=== PATIENT | female | born 1975 ===

== ENCOUNTER 2017-07-04 10:41 | Observation (INO) | payer OTHER ==
[2017-07-04 10:45] VITALS: BMI 34.4
[2017-07-04] MEDS ORDERED: Sodium Chloride 0.9% 1,000 ML IV STA ×2 (11:15→14:42)
--- NOTE | 2017-07-04 11:17 | ED PDOC ---
HPI: Abdomen Time Seen by Provider: 07/04/17 11:08 Chief Complaint (Nursing): Abdominal Pain History Per: Patient Onset/Duration Of Symptoms: Days (1) Current Symptoms Are (Timing): Still Present Severity: Mild Location Of Pain/Discomfort: RUQ, Epigastric Quality Of Discomfort: Unable To Describe Associated Symptoms: Nausea, Vomiting, Diarrhea. denies: Fever Exacerbating Factors: None Alleviating Factors: None Additional Complaint(s): Epigastric and RUQ abd pain assoc with nausea vomiting and diarrhea since last night. No fever. No urinary sxs Past Medical History Vital Signs: Last Vital Signs Temp 98.1 F 07/04/17 10:46 Pulse 90 07/04/17 10:46 Resp 18 07/04/17 10:46 BP 191/103 H 07/04/17 10:46 Pulse Ox 99 07/04/17 11:17 - Medical History PMH: Anemia, Anxiety, HTN Denies: HIV, Chronic Kidney Disease - Surgical History Surgical History: Cholecystectomy, Hernia Repair (done during laproscopic cholecystectomy), (x3) - Family History Family History: States: Unknown Family Hx - Home Medications Home Medications: Ambulatory Orders Medication Instructions Recorded amLODIPine [Norvasc] 5 mg PO DAILY #0 tab 12/01/15 Lisinopril/Hydrochlorothiazide 1 tab PO DAILY 12/16/15 [Lisinopril-Hydrochlorothiazide 25 mg-20 mg] cloNIDine [Catapres (RENAL)] 0.1 mg PO BID #0 tab 02/02/16 oxyCODONE/Acetaminophen [Percocet 1 ea PO Q8 #20 tab 02/02/16 5/325 mg Tab] Cyclobenzaprine [Flexeril] 5 mg PO Q8 PRN #15 tab 03/10/16 - Allergies Allergies/Adverse Reactions: Allergies Allergy/AdvReac Type Severity Reaction Status Date / Time No Known Allergies Allergy Verified 02/01/16 13:19 Review of Systems ROS Statement: Except As Marked, All Systems Reviewed And Found Negative Constitutional: Negative for: Fever Gastrointestinal: Positive for: Nausea, Vomiting, Abdominal Pain, Diarrhea Physical Exam - Reviewed Nursing Documentation Reviewed: Yes Vital Signs Reviewed: Yes - Physical Exam Appears: Positive for: Non-toxic, No Acute Distress Head Exam: Positive for: ATRAUMATIC, NORMAL INSPECTION, NORMOCEPHALIC Skin: Positive for: Normal Color, Warm, DRY Eye Exam: Positive for: EOMI, Normal appearance, PERRL ENT: Positive for: Normal ENT Inspection Neck: Positive for: Normal, Painless ROM Cardiovascular/Chest: Positive for: Regular Rate, Rhythm Respiratory: Positive for: CNT, Normal Breath Sounds Gastrointestinal/Abdominal: Positive for: Bowel Sounds, Soft, Tenderness (RUQ) Back: Positive for: Normal Inspection Extremity: Positive for: Normal ROM Neurologic/Psych: Positive for: Alert, Oriented - Laboratory Results Result Diagrams: 07/04/17 11:50 07/04/17 11:50 - ECG O2 Sat by Pulse Oximetry: 99 Disposition - Clinical Impression Clinical Impression: Anemia, GI bleed - Patient ED Disposition Is Patient to be Admitted: Yes - Disposition Disposition Time: 14:41 Condition: FAIR Forms: [facility] (Polish) - Pt Status Changed To: Hospital Disposition Of: Observation - POA Present On Arrival: None
[2017-07-04 12:04] LABS: BASO # 0.1 K/uL (0.0-0.2); BASO % 1.4 % (0.0-2.0); EOS # 0.3 K/uL (0.0-0.7); EOS % 3.2 % (0.0-4.0); HEMOGLOBIN 7.1 g/dL (12.0-16.0); LYMPH # 1.4 K/uL (1.0-4.3); LYMPH % 15.4 % (20.0-40.0); MEAN CELL VOLUME 58.9 fl (81.0-99.0); MEAN CORPUSCULAR HGB CONC 30.5 g/dL (33.0-37.0); MEAN PLATELET VOLUME 8.8 fl (7.2-11.7); MONO # 0.5 K/uL (0.0-0.8); MONO % 5.5 % (0.0-10.0); NEUT % 74.5 % (50.0-75.0); RBC 3.95 Mil/uL (3.80-5.20); RED CELL DISTRIBUTION WIDTH 18.5 % (11.5-14.5); WHITE BLOOD COUNT 9.3 K/uL (4.8-10.8)
[2017-07-04 12:25] LABS: ALBUMIN 4.2 g/dL (3.5-5.0); ALT/SGPT 30 U/L (9-52); AST/SGOT 16 U/L (14-36); BLOOD UREA NITROGEN 16 mg/dl (7-17); CALCIUM 8.8 mg/dL (8.4-10.2); GFR AFRICAN-AMERICAN > 60; GFR NON-AFRICAN AMERICAN > 60
[2017-07-04] MEDS ORDERED: Iohexol 300 100 ML IJ ONE (13:13)
--- NOTE | 2017-07-04 14:21 | CT ---
PROCEDURE: CT Abdomen and Pelvis with contrast HISTORY: abd pain COMPARISON: 02/01/2016 TECHNIQUE: Contrast dose: 95 cc Omnipaque 300 Radiation dose: Total exam DLP = 682.54 mGy-cm. This CT exam was performed using one or more of the following dose reduction techniques: Automated exposure control, adjustment of the mA and/or kV according to patient size, and/or use of iterative reconstruction technique. FINDINGS: LOWER THORAX: Unremarkable. LIVER: Unremarkable. No gross lesion or ductal dilatation. GALLBLADDER AND BILE DUCTS: Status post cholecystectomy PANCREAS: Unremarkable. No gross lesion or ductal dilatation. SPLEEN: Unremarkable. ADRENALS: Unremarkable. No mass. KIDNEYS AND URETERS: Unremarkable. No hydronephrosis. No solid mass. VASCULATURE: Unremarkable. No aortic aneurysm. BOWEL: Unremarkable. No obstruction. No gross mural thickening. APPENDIX: Normal appendix. PERITONEUM: No ascites or pneumoperitoneum. Ventral mesh at the site of prior abdominal wall fluid collection. At fluid collection has resolved. LYMPH NODES: Unremarkable. No enlarged lymph nodes. BLADDER: Nondistended REPRODUCTIVE: Normal uterus BONES: No acute fracture. OTHER FINDINGS: None. IMPRESSION: No acute abnormality. Previous anterior abdominal wall fluid collection has resolved. Status post cholecystectomy.
--- NOTE | 2017-07-04 15:59 | CP.PCM.HP ---
History of Present Illness - History of Present Illness History of Present Illness: CC: abdominal pain HPI: 42 y/o woman w/ pmh of HTN and anemia (unsure of type) presents to ED w/ abdominal pain. Patient reports epigastric abdominal pain that started 1 day ago while at work. Patient reported pain was intermittent and radiated down to groin. Patient also reports bright blood per rectum after bowel movement. Patient reports similar episode in the past for which she received blood transfusion. Patient usually Hb 9.0 at baseline. Patient has had multiple transfusions and reports last transfusion in 2016. Patient reports LMP was 4 days ago, is regular, w/ menorrhagia lasting 7 days sometimes more. Patient reported x2 episodes of non-bloody/non-bilious vomit this morning. Patient denies other bleeding. Patient denies headaches, chest pain, SOB, dysuria, fever, or chills. PMD: [facility] in [place] PMH: HTN, anemia meds: see med list allergies: NKDA PSH: x3 , cholecystectomy, umbilical hernia repair, exploratory laparotomy s/p 3rd Fam: mother and grandmother HTN SOC: smokes 1/2 ppd for over 20 years, denies alcohol and drugs ROS: 12 points assessed and negative unless otherwise reported in HPI Present on Admission - Present on Admission Any Indicators Present on Admission: No History of DVT/PE: No History of Uncontrolled Diabetes: No Urinary Catheter: No Decubitus Ulcer Present: No Review of Systems - Review of Systems All systems: reviewed and no additional remarkable complaints except - Constitutional Constitutional: absent: Chills, Fever, Headache - EENT Eyes: absent: Change in Vision - Cardiovascular Cardiovascular: absent: Chest Pain - Respiratory Respiratory: absent: Dyspnea - Gastrointestinal Gastrointestinal: As Per HPI, Abdominal Pain, Diarrhea, Hematochezia, Loose Stools, Nausea, Vomiting. absent: Coffee Ground Emesis, Hematemesis, Melena - Genitourinary Genitourinary: absent: Dysuria - Reproductive: Female Reproductive:Female: Heavy Menses - Menstruation Menstruation: Heavy Menses - Integumentary Integumentary: absent: Rash - Neurological Neurological: absent: Dizziness, Headaches Past Patient History - Infectious Disease Hx of Infectious Diseases: None - Past Medical History & Family History Past Medical History?: Yes - Past Social History Smoking Status: Current Some Days Smoker - CARDIAC Hx Hypertension: Yes - PULMONARY Hx Respiratory Disorders: No - NEUROLOGICAL Hx Neurological Disorder: No - HEENT Hx HEENT Problems: No - RENAL Hx Chronic Kidney Disease: No - ENDOCRINE/METABOLIC Hx Endocrine Disorders: No - HEMATOLOGICAL/ONCOLOGICAL Hx Anemia: Yes Hx Human Immunodeficiency Virus (HIV): No - INTEGUMENTARY Hx Dermatological Problems: No - MUSCULOSKELETAL/RHEUMATOLOGICAL Hx Musculoskeletal Disorders: No Hx Falls: No - GASTROINTESTINAL Hx Gastrointestinal Disorders: Yes Hx Nausea: Yes - GENITOURINARY/GYNECOLOGICAL Hx Genitourinary Disorders: No - PSYCHIATRIC Hx Anxiety: Yes - SURGICAL HISTORY Hx Cholecystectomy: Yes - ANESTHESIA Hx Anesthesia: Yes Hx Anesthesia Reactions: No Hx Malignant Hyperthermia: No Meds Allergies/Adverse Reactions: Allergies Allergy/AdvReac Type Severity Reaction Status Date / Time No Known Allergies Allergy Verified 02/01/16 13:19 Physical Exam - Constitutional Appears: Non-toxic, No Acute Distress - Head Exam Head Exam: ATRAUMATIC, NORMAL INSPECTION, NORMOCEPHALIC - Eye Exam Eye Exam: EOMI, Normal appearance, PERRL - ENT Exam ENT Exam: Mucous Membranes Dry - Neck Exam Neck exam: Positive for: Full Rom. Negative for: Tenderness - Respiratory Exam Respiratory Exam: Clear to Auscultation Bilateral. absent: Accessory Muscle Use , Decreased Breath Sounds, Rales, Rhonchi, Wheezes, Respiratory Distress - Cardiovascular Exam Cardiovascular Exam: REGULAR RHYTHM. absent: Tachycardia - GI/Abdominal Exam GI & Abdominal Exam: Normal Bowel Sounds, Soft. absent: Distended, Tenderness - Extremities Exam Extremities exam: Negative for: calf tenderness, pedal edema, tenderness - Neurological Exam Neurological exam: Alert, Oriented x3 - Skin Skin Exam: Dry, Intact, Pallor, Warm Results - Vital Signs Recent Vital Signs: Last Vital Signs Temp 98.1 F 07/04/17 10:46 Pulse 90 07/04/17 10:46 Resp 18 07/04/17 10:46 BP 191/103 H 07/04/17 10:46 Pulse Ox 99 07/04/17 14:41 - Labs Result Diagrams: 07/04/17 11:50 07/04/17 11:50 Labs: Laboratory Results - last 24 hr 07/04/17 07/04/17 07/04/17 11:50 11:50 13:25 WBC 9.3 RBC 3.95 Hgb 7.1 L Hct 23.3 L MCV 58.9 L D MCH 18.0 L MCHC 30.5 L RDW 18.5 H Plt Count 342 MPV 8.8 Neut % (Auto) 74.5 Lymph % (Auto) 15.4 L [place] % (Auto) 5.5 Eos % (Auto) 3.2 Baso % (Auto) 1.4 Neut # (Auto) 7.0 Lymph # (Auto) 1.4 [place] # (Auto) 0.5 Eos # (Auto) 0.3 Baso # (Auto) 0.1 Sodium 144 Potassium 3.6 Chloride 107 Carbon Dioxide 21 L Anion Gap 20 BUN 16 Creatinine 1.0 Est GFR ( Amer) > 60 Est GFR (Non-Af Amer) > 60 Random Glucose 116 H Calcium 8.8 Total Bilirubin 0.6 AST 16 ALT 30 Alkaline Phosphatase 56 Total Protein 8.2 Albumin 4.2 Globulin 4.0 H Albumin/Globulin Ratio 1.0 Blood Type O POSITIVE Antibody Screen Negative Crossmatch See Detail BBK History Checked Patient has bt Assessment & Plan (1) Anemia Status: Acute (2) Abdominal pain in female Status: Acute (3) Menorrhagia Status: Chronic (4) HTN (hypertension) Status: Chronic Priority: High - Assessment and Plan (Free Text) Plan: c/w present management afebrile, non-tachycardic, elevated BP 191/103 mm hg CBC: 9.3>7.1/23.3<342 CMP: 144/3.6, 107/21, 16/1.0, glucose 116, AST 16, ALT 30, alk phos 56 type and screen ordered patient to receive 2 units PRBC previous Hb electrophoresis in 2016 showed sickle cell trait w/ possible sickle cell trait w/ alpha thalassemia f/u anemia studies f/u CBC s/p 2 units PRBC monitor for acute changes admit to Tele
[2017-07-04 16:28] LABS: FERRITIN 2.4 ng/Ml (6.24-137.0)
[2017-07-04 18:18] LABS: IRON 15 ug/dL (37-170)
[2017-07-04 18:27] LABS: % IRON SATURATION 3 % (20-55); TOTAL IRON BINDING CAPACITY 492 ug/dL (250-450)
[2017-07-04 21:40] LABS: FOLATE 14.8 ng/mL
[2017-07-05 00:46] VITALS: RESP 18
[2017-07-05 06:15] LABS: BASO # 0.1 K/uL (0.0-0.2); BASO % 0.8 % (0.0-2.0); EOS # 0.4 K/uL (0.0-0.7); EOS % 3.9 % (0.0-4.0); HEMOGLOBIN 7.4 g/dL (12.0-16.0); LYMPH # 1.3 K/uL (1.0-4.3); LYMPH % 14.5 % (20.0-40.0); MEAN CELL VOLUME 61.1 fl (81.0-99.0); MEAN CORPUSCULAR HEMOGLOBIN 18.9 pg (27.0-31.0); MEAN CORPUSCULAR HGB CONC 30.9 g/dL (33.0-37.0); MEAN PLATELET VOLUME 8.5 fl (7.2-11.7); MONO # 0.6 K/uL (0.0-0.8); MONO % 6.6 % (0.0-10.0); NEUT # 6.8 K/uL (1.8-7.0); NEUT % 74.2 % (50.0-75.0); NRBC % 0.1 % (0.0-0.0); RBC 3.9 Mil/uL (3.80-5.20); RED CELL DISTRIBUTION WIDTH 19.8 % (11.5-14.5); WHITE BLOOD COUNT 9.1 K/uL (4.8-10.8)
[2017-07-05 06:43] LABS: ALB/GLOB RATIO 1.1 (1.0-2.1); ALBUMIN 3.9 g/dL (3.5-5.0); ALT/SGPT 26 U/L (9-52); AST/SGOT 26 U/L (14-36); BLOOD UREA NITROGEN 13 mg/dl (7-17); CALCIUM 8.5 mg/dL (8.4-10.2); GFR AFRICAN-AMERICAN > 60; GFR NON-AFRICAN AMERICAN > 60
[2017-07-05] MEDS ORDERED: Chlorhexidine Gluconate 1 APPL/PKT TP ONE (08:00)
[2017-07-05] MEDS ORDERED: Potassium Chloride 20 mEq ER Tab PO ONE (08:29)
--- NOTE | 2017-07-05 08:50 | CP.PCM.CON ---
<Michelle Rogers - Last Filed: 07/05/17 10:15> History of Present Illness - History of Present Illness History of Present Illness: GI Fellow PGY4 Consult Note This is a 42y woman with pmhx of HTN and anemia from menorrhagia presents to ED with complaints of abdominal pain and diarrhea for 3 days. Patient reports abdominal pain that is crampy and associated with liquid diarrhea for the past 3 days. She denies any sick contacts, eating anything, recent travel or abx use. Patient also reports blood on toilet paper after wiping after BM, she reports this in the past as well but denies constipation, reports large internal hemorrhoids after . She denies toet bowel filling with bright red blood. No prior hx of diarrhea. No fevers, chills, positive for nausea. Patient reported x2 episodes of non-bloody/non-bilious vomit yesterday which has resolved. She was able to tolerate chicken soup overnight. She has a hx of anemia with multiple admissions with HGb in the 7-8 range and has received blood transfusions. She denies any chest pain, sob or dizziness. LMP was 4 days ago with menorrhagia lasting 7 days and using 12 pads daily. She reports sometimes her meses can last from 7-10 days and she uses 12-14 pads daily. She has seen a Photo Producer as an outpt and was scheduled for hysterectomy but never followed up due to personal issues. ROS: A 12pt ROS was negative except as above PMH: As stated in HPI PSH: x3 , cholecystectomy, umbilical hernia repair, exploratory laparotomy s/p 3rd FHx: mother and grandmother HTN SHx: smokes 1/2 ppd for over 20 years, denies alcohol and drugs Past Patient History - Infectious Disease Hx of Infectious Diseases: None - Past Medical History & Family History Past Medical History?: Yes - Past Social History Smoking Status: Current Some Days Smoker - CARDIAC Hx Hypertension: Yes - PULMONARY Hx Respiratory Disorders: No - NEUROLOGICAL Hx Neurological Disorder: No - HEENT Hx HEENT Problems: No - RENAL Hx Chronic Kidney Disease: No - ENDOCRINE/METABOLIC Hx Endocrine Disorders: No - HEMATOLOGICAL/ONCOLOGICAL Hx Anemia: Yes Hx Human Immunodeficiency Virus (HIV): No - INTEGUMENTARY Hx Dermatological Problems: No - MUSCULOSKELETAL/RHEUMATOLOGICAL Hx Musculoskeletal Disorders: No - GASTROINTESTINAL Hx Gastrointestinal Disorders: Yes Hx Nausea: Yes - GENITOURINARY/GYNECOLOGICAL Hx Genitourinary Disorders: No - PSYCHIATRIC Hx Anxiety: Yes Hx Substance Use: No - SURGICAL HISTORY Hx Cholecystectomy: Yes - ANESTHESIA Hx Anesthesia: Yes Hx Anesthesia Reactions: No Hx Malignant Hyperthermia: No Meds Allergies/Adverse Reactions: Allergies Allergy/AdvReac Type Severity Reaction Status Date / Time No Known Allergies Allergy Verified 02/01/16 13:19 - Medications Medications: Current Medications Acetaminophen (Tylenol 325mg Tab) 650 mg PO Q6 PRN PRN Reason: Pain, Mild (1-3) Amlodipine Besylate (Norvasc) 5 mg PO DAILY [facility] Clonidine HCl (Catapres) 0.1 mg PO Q6H PRN PRN Reason: hypertension Last Admin: 07/05/17 00:52 Dose: 0.1 mg Clonidine HCl (Catapres) 0.1 mg PO Q12 [facility] Codeine Sulfate (Codeine) 30 mg PO Q6 PRN PRN Reason: Pain, moderate (4-7) Last Admin: 07/05/17 03:29 Dose: 30 mg Hydrochlorothiazide (Hydrodiuril) 25 mg PO DAILY [facility] Hydrochlorothiazide (Hydrodiuril) 25 mg PO DAILY [facility] Lisinopril (Zestril) 20 mg PO DAILY OSMAN Lisinopril (Zestril) 20 mg PO DAILY [facility]SM[facility] Physical Exam - Constitutional Appears: Non-toxic, No Acute Distress - Head Exam Head Exam: ATRAUMATIC, NORMAL INSPECTION, NORMOCEPHALIC - Eye Exam Eye Exam: EOMI, Normal appearance, PERRL - ENT Exam ENT Exam: Mucous Membranes Moist - Neck Exam Neck exam: Positive for: Full Rom - Respiratory Exam Respiratory Exam: Clear to Auscultation Bilateral, NORMAL BREATHING PATTERN - Cardiovascular Exam Cardiovascular Exam: REGULAR RHYTHM, RRR, +S1, +S2 - GI/Abdominal Exam GI & Abdominal Exam: Normal Bowel Sounds, Soft, Tenderness. absent: Distended, Firm, Guarding, Organomegaly - Rectal Exam Rectal Exam: Hemorrhoids Additional comments: Internal grade II hemorroids, external hemorroids, no rectal bleeding, no melena , no hemtochezia, liquid brown stool - Extremities Exam Extremities exam: Positive for: full ROM, normal inspection - Back Exam Back exam: NORMAL INSPECTION - Neurological Exam Neurological exam: Alert, Oriented x3 - Psychiatric Exam Psychiatric exam: Anxious, Normal Affect, Normal Mood - Skin Skin Exam: Dry, Intact, Normal Color, Warm Results - Vital Signs Recent Vital Signs: Last Vital Signs Temp 98.4 F 07/05/17 08:03 Pulse 69 07/05/17 08:03 Resp 18 07/05/17 08:03 BP 153/90 H 07/05/17 08:03 Pulse Ox 99 07/05/17 08:03 - Labs Result Diagrams: 07/05/17 05:56 07/05/17 05:56 Labs: Laboratory Results - last 24 hr 07/04/17 07/04/17 07/04/17 11:50 11:50 13:25 WBC 9.3 RBC 3.95 Hgb 7.1 L Hct 23.3 L MCV 58.9 L D MCH 18.0 L MCHC 30.5 L RDW 18.5 H Plt Count 342 MPV 8.8 Neut % (Auto) 74.5 Lymph % (Auto) 15.4 L [place] % (Auto) 5.5 Eos % (Auto) 3.2 Baso % (Auto) 1.4 Neut # (Auto) 7.0 Lymph # (Auto) 1.4 [place] # (Auto) 0.5 Eos # (Auto) 0.3 Baso # (Auto) 0.1 Retic Count Sodium 144 Potassium 3.6 Chloride 107 Carbon Dioxide 21 L Anion Gap 20 BUN 16 Creatinine 1.0 Est GFR ( Amer) > 60 Est GFR (Non-Af Amer) > 60 Random Glucose 116 H Calcium 8.8 Iron TIBC % Saturation Ferritin 2.4 L Total Bilirubin 0.6 AST 16 ALT 30 Alkaline Phosphatase 56 Total Protein 8.2 Albumin 4.2 Globulin 4.0 H Albumin/Globulin Ratio 1.0 Vitamin B12 339 Folate 14.8 Stool Occult Blood Blood Type O POSITIVE Antibody Screen Negative Crossmatch See Detail BBK History Checked Patient has bt 07/04/17 07/04/17 07/04/17 16:50 16:50 20:15 WBC RBC Hgb Hct MCV MCH MCHC RDW Plt Count MPV Neut % (Auto) Lymph % (Auto) [place] % (Auto) Eos % (Auto) Baso % (Auto) Neut # (Auto) Lymph # (Auto) [place] # (Auto) Eos # (Auto) Baso # (Auto) Retic Count 2.0 H Sodium Potassium Chloride Carbon Dioxide Anion Gap BUN Creatinine Est GFR ( Amer) Est GFR (Non-Af Amer) Random Glucose Calcium Iron 15 L TIBC 492 H % Saturation 3 L Ferritin Total Bilirubin AST ALT Alkaline Phosphatase Total Protein Albumin Globulin Albumin/Globulin Ratio Vitamin B12 Folate Stool Occult Blood Negative Blood Type Antibody Screen Crossmatch BBK History Checked 07/05/17 07/05/17 05:56 05:56 WBC 9.1 RBC 3.90 Hgb 7.4 L Hct 23.8 L MCV 61.1 L D MCH 18.9 L MCHC 30.9 L RDW 19.8 H Plt Count 286 MPV 8.5 Neut % (Auto) 74.2 Lymph % (Auto) 14.5 L [place] % (Auto) 6.6 Eos % (Auto) 3.9 Baso % (Auto) 0.8 Neut # (Auto) 6.8 Lymph # (Auto) 1.3 [place] # (Auto) 0.6 Eos # (Auto) 0.4 Baso # (Auto) 0.1 Retic Count Sodium 144 Potassium 3.3 L Chloride 106 Carbon Dioxide 21 L Anion Gap 20 BUN 13 Creatinine 0.9 Est GFR ( Amer) > 60 Est GFR (Non-Af Amer) > 60 Random Glucose 103 Calcium 8.5 Iron TIBC % Saturation Ferritin Total Bilirubin 1.2 AST 26 ALT 26 Alkaline Phosphatase 52 Total Protein 7.6 Albumin 3.9 Globulin 3.7 Albumin/Globulin Ratio 1.1 Vitamin B12 Folate Stool Occult Blood Blood Type Antibody Screen Crossmatch BBK History Checked Assessment & Plan - Assessment and Plan (Free Text) Assessment: This is a 42yF presenting with abdominal pain and diarrhea for three days. 1. Abdominal pain 2. Diarrhea 3. Anemia Plan: -Continue supportive care with pain control and anti-emetics -CT imaging w contrast reviewed with no signs of colitis, diverticulitis, no mural thickening -Pt with abdominal pain and diarrhea-infectious workup ordered including stool studies, cdiff, this maybe viral gastroenteritis -Can consider started abx cipro/flagyl with continued diarrhea, will defer to primary medicine team -Advance to full liquid diet -IVF hydration -No active GI bleeding, hemodynamically stable, chronic anemia likely from menorrhagia, but she does need outpt EGD/Colonoscopy to r/o PUD, celiac, underlying malignancy -Monitor H/H s/p 1 U PRBCs -Needs outpt Photo Producer consultation -Please call with any questions or concerns <David Singh - Last Filed: 07/05/17 11:02> Meds - Medications Medications: Current Medications Acetaminophen (Tylenol 325mg Tab) 650 mg PO Q6 PRN PRN Reason: Pain, Mild (1-3) Amlodipine Besylate (Norvasc) 5 mg PO DAILY [facility] Last Admin: 07/05/17 09:30 Dose: 5 mg Clonidine HCl (Catapres) 0.1 mg PO Q6H PRN PRN Reason: hypertension Last Admin: 07/05/17 00:52 Dose: 0.1 mg Clonidine HCl (Catapres) 0.1 mg PO Q12 [facility] Last Admin: 07/05/17 09:32 Dose: 0.1 mg Codeine Sulfate (Codeine) 30 mg PO Q6 PRN PRN Reason: Pain, moderate (4-7) Last Admin: 07/05/17 03:29 Dose: 30 mg Hydrochlorothiazide (Hydrodiuril) 25 mg PO DAILY [facility] Last Admin: 07/05/17 09:30 Dose: 25 mg Hydrochlorothiazide (Hydrodiuril) 25 mg PO DAILY [facility] Last Admin: 07/05/17 09:34 Dose: Not Given Lisinopril (Zestril) 20 mg PO DAILY [facility] Last Admin: 07/05/17 09:27 Dose: 20 mg Lisinopril (Zestril) 20 mg PO DAILY [facility] Last Admin: 07/05/17 09:27 Dose: Not Given Results - Vital Signs Recent Vital Signs: Last Vital Signs Temp 98.4 F 07/05/17 08:03 Pulse 69 07/05/17 09:32 Resp 18 07/05/17 08:03 BP 153/90 H 07/05/17 09:32 Pulse Ox 99 07/05/17 08:03 - Labs Result Diagrams: 07/05/17 05:56 07/05/17 05:56 Labs: Laboratory Results - last 24 hr 07/04/17 07/04/17 07/04/17 11:50 11:50 13:25 WBC 9.3 RBC 3.95 Hgb 7.1 L Hct 23.3 L MCV 58.9 L D MCH 18.0 L MCHC 30.5 L RDW 18.5 H Plt Count 342 MPV 8.8 Neut % (Auto) 74.5 Lymph % (Auto) 15.4 L [place] % (Auto) 5.5 Eos % (Auto) 3.2 Baso % (Auto) 1.4 Neut # (Auto) 7.0 Lymph # (Auto) 1.4 [place] # (Auto) 0.5 Eos # (Auto) 0.3 Baso # (Auto) 0.1 Retic Count Sodium 144 Potassium 3.6 Chloride 107 Carbon Dioxide 21 L Anion Gap 20 BUN 16 Creatinine 1.0 Est GFR ( Amer) > 60 Est GFR (Non-Af Amer) > 60 Random Glucose 116 H Calcium 8.8 Iron TIBC % Saturation Ferritin 2.4 L Total Bilirubin 0.6 AST 16 ALT 30 Alkaline Phosphatase 56 Total Protein 8.2 Albumin 4.2 Globulin 4.0 H Albumin/Globulin Ratio 1.0 Vitamin B12 339 Folate 14.8 Stool Occult Blood Blood Type O POSITIVE Antibody Screen Negative Crossmatch See Detail BBK History Checked Patient has bt 07/04/17 07/04/17 07/04/17 16:50 16:50 20:15 WBC RBC Hgb Hct MCV MCH MCHC RDW Plt Count MPV Neut % (Auto) Lymph % (Auto) [place] % (Auto) Eos % (Auto) Baso % (Auto) Neut # (Auto) Lymph # (Auto) [place] # (Auto) Eos # (Auto) Baso # (Auto) Retic Count 2.0 H Sodium Potassium Chloride Carbon Dioxide Anion Gap BUN Creatinine Est GFR ( Amer) Est GFR (Non-Af Amer) Random Glucose Calcium Iron 15 L TIBC 492 H % Saturation 3 L Ferritin Total Bilirubin AST ALT Alkaline Phosphatase Total Protein Albumin Globulin Albumin/Globulin Ratio Vitamin B12 Folate Stool Occult Blood Negative Blood Type Antibody Screen Crossmatch BBK History Checked 07/05/17 07/05/17 05:56 05:56 WBC 9.1 RBC 3.90 Hgb 7.4 L Hct 23.8 L MCV 61.1 L D MCH 18.9 L MCHC 30.9 L RDW 19.8 H Plt Count 286 MPV 8.5 Neut % (Auto) 74.2 Lymph % (Auto) 14.5 L [place] % (Auto) 6.6 Eos % (Auto) 3.9 Baso % (Auto) 0.8 Neut # (Auto) 6.8 Lymph # (Auto) 1.3 [place] # (Auto) 0.6 Eos # (Auto) 0.4 Baso # (Auto) 0.1 Retic Count Sodium 144 Potassium 3.3 L Chloride 106 Carbon Dioxide 21 L Anion Gap 20 BUN 13 Creatinine 0.9 Est GFR ( Amer) > 60 Est GFR (Non-Af Amer) > 60 Random Glucose 103 Calcium 8.5 Iron TIBC % Saturation Ferritin Total Bilirubin 1.2 AST 26 ALT 26 Alkaline Phosphatase 52 Total Protein 7.6 Albumin 3.9 Globulin 3.7 Albumin/Globulin Ratio 1.1 Vitamin B12 Folate Stool Occult Blood Blood Type Antibody Screen Crossmatch BBK History Checked Attending/Attestation - Attestation I have personally seen and examined this patient.: Yes I have fully participated in the care of the patient.: Yes I have reviewed all pertinent clinical information: Yes Notes (Text): 07/05/17 11:00 This is a 42 year old F presenting with abdominal pain and diarrhea for three days which has resolved now. She has long standing history of anemia with menorrhagia. Will need outpatient EGD/ colonoscopy for complete work up. Rectal exam negative for blood in rectal vault. Diet as tolerated. No active overt GIB. No further GI work up required. Patient to follow with me as outpatient. Thank you for letting us participate in the care of your patients -Please call with any questions or concerns
[2017-07-05] MEDS ORDERED: Patient's Own Med (Lisinopril/Hydrochlorothiazide [Lisinopril-Hctz 20-25 Mg Tab] 1 TAB) PO SCH (09:00)
[2017-07-05 12:34] VITALS: BP 143/85; PULSE 71; TEMP 98.5; O2SAT 100
--- NOTE | 2017-07-06 01:52 | CP.PCM.PN ---
Subjective - Date & Time of Evaluation Date of Evaluation: 07/05/17 Time of Evaluation: 09:50 - Subjective Subjective: c/o feeling distended abdomen Objective - Vital Signs/Intake and Output Vital Signs (last 24 hours): Temp Pulse Resp BP Pulse Ox 98.5 F 71 18 143/85 100 07/05/17 12:34 07/05/17 12:34 07/05/17 12:34 07/05/17 12:34 07/05/17 12:34 - Labs Labs: 07/05/17 05:56 07/05/17 05:56 - Constitutional Appears: Non-toxic, No Acute Distress - Head Exam Head Exam: ATRAUMATIC - Eye Exam Eye Exam: Normal appearance, PERRL Pupil Exam: NORMAL ACCOMODATION - ENT Exam ENT Exam: Mucous Membranes Moist - Neck Exam Neck Exam: Full ROM, Normal Inspection - Respiratory Exam Respiratory Exam: Clear to Ausculation Bilateral - Cardiovascular Exam Cardiovascular Exam: REGULAR RHYTHM - GI/Abdominal Exam GI & Abdominal Exam: Soft, Normal Bowel Sounds. absent: Bruit, Distended, Firm , Guarding, Rigid, Tenderness, Diminished Bowel Sounds, Hernia, Hyperactive Bowel Sounds, Hypoactive Bowel Sounds, Organomegaly, Pulsatile Mass, Rebound, Mass - Extremities Exam Extremities Exam: Full ROM, Normal Capillary Refill - Back Exam Back Exam: NORMAL INSPECTION - Neurological Exam Neurological Exam: Alert, Awake, Oriented x3 - Psychiatric Exam Psychiatric exam: Normal Affect - Skin Skin Exam: Normal Color, Warm Assessment and Plan - Assessment and Plan (Free Text) Assessment: (1) Anemia Status: Acute (2) Abdominal pain in female Status: Acute (3) Menorrhagia Status: Chronic (4) HTN (hypertension) Status: Chronic Priority: High Plan: c/w present management afebrile, non-tachycardic, elevated BP 191/103 mm hg CBC: 9.3>7.1/23.3<342 CMP: 144/3.6, 107/21, 16/1.0, glucose 116, AST 16, ALT 30, alk phos 56 type and screen ordered patient to receive 2 units PRBC previous Hb electrophoresis in 2015 showed sickle cell trait w/ possible sickle cell trait w/ alpha thalassemia f/u anemia studies f/u CBC monitor for acute changes f/u GI and hematology
== END 2017-07-05 14:45 | disposition home or self-care (01) ==
LOC: H.ER 10:41 → H.ERHOLD 14:37 → H.TEL 22:22
PROVIDERS: ADMIT Internal Medicine; ATTEND Internal Medicine
DX: K62.5 Hemorrhage of anus and rectum (principal); N92.0 Excessive and frequent menstruation with regular cycle; Z82.49 Family history of ischemic heart disease and other diseases of the circulatory system; Z90.49 Acquired absence of other specified parts of digestive tract; D50.0 Iron deficiency anemia secondary to blood loss (chronic); F41.9 Anxiety disorder, unspecified; D64.9 Anemia, unspecified; F17.210 Nicotine dependence, cigarettes, uncomplicated; I10 Essential (primary) hypertension
CPT/HCPCS: 36415; 74177; 80053; 81025; 82607; 82668; 82728; 82746; 83010; 83540; 83550; 85025; 85044; 86768; 86850; 86900; 86920; 96374; 96376; 99283; G0328; G0378; J7040; Q9967